=== PATIENT | male | born 1965 | race Caucasian/White ===

== ENCOUNTER 2021-03-09 19:59 | Emergency (ER) | payer MEDICARE, OTHER ==
[~2021-03-09] VITALS: Ht 180.3 cm; Wt 73.5 kg
--- NOTE | 2021-03-09 20:05 | NUR ---
PT BIB [facility] FROM HOME C/O WILLETT/MIGRAINE. PER REPORT PT WAS IN A VERBAL ARGUMENT WITH HIS NEIGHBORS REGARDING NOISE COMPLAINS WHICH IS AN ONGOING SITUATION. PT STATED HE TOOK 2 MG ATIVAN 45 MINUTES STUCCO MASON, HX OF ANXIETY. PT A/O X4, NO SOB OR LABORED BREATHING. NOTED TO BE CALM AND COOPERATIVE AT THE MOMENT. CLEAR SPEECH, COMPLETE SENTENCES. DENIES ANY CP/PRESSURE. AMBULATORY, STEADY GAIT.
--- NOTE | 2021-03-09 20:10 | NUR ---
DR. TOMPKINS AT BEDSIDE, MSE IN PROGRESS.
[2021-03-09] MEDS ORDERED: PROCHLORPERAZINE EDISYLATE 10 MG/2 ML VIAL IV ONE (20:30)
[2021-03-09] MEDS ORDERED: diphenhydrAMINE 50 MG/1 ML VIAL IV ONE (20:30)
[2021-03-09] MEDS ORDERED: IV NORMAL SALINE 500 ML BAG IV ONE (20:30)
[2021-03-09] MEDS ORDERED: diphenhydrAMINE 50 MG/1 ML VIAL ONE (20:40)
[2021-03-09] MEDS ORDERED: PROCHLORPERAZINE EDISYLATE 10 MG/2 ML VIAL ONE (20:40)
[2021-03-09 20:58] LABS: HEMATOCRIT 38.2 % (36.7-47.1); MEAN CORPUSCULAR HEMOGLOBIN 32.7 uug (23.8-33.4); MEAN CORPUSCULAR VOLUME 95.3 fL (73.0-96.2); PLATELET COUNT (AUTO) 127 K/uL (152-348)
[2021-03-09 20:59] LABS: CREATININE 1.6 mg/dL (0.6-1.3); POTASSIUM 4.5 mmol/L (3.5-5.1)
--- NOTE | 2021-03-09 22:08 | NUR ---
Patient discharged to home in stable condition. A/O X4, denies any pain/discomfort upon discharge. Written and verbal after care instructions given. Patient verbalizes understanding of instructions. Stressed follow up or return to ER for worsening s/s. Steady gait. Picked up by .
[2021-03-09 22:09] VITALS: BP 139/89
== END 2021-03-09 22:09 | disposition home or self-care (01) ==
LOC: ER 20:00
DX: G43.909 Migraine, unspecified, not intractable, without status migrainosus (principal); Z86.73 Personal history of transient ischemic attack (TIA), and cerebral infarction without residual deficits; Z94.0 Kidney transplant status; H54.7 Unspecified visual loss; Z87.891 Personal history of nicotine dependence; E11.65 Type 2 diabetes mellitus with hyperglycemia; Z95.5 Presence of coronary angioplasty implant and graft
CPT/HCPCS: 36415; 80048; 85025; 96361; 96374; 96375; 99284; J0780; J1200; A4663; J7030

== ENCOUNTER 2021-05-06 20:21 | Inpatient (IN) | payer MEDICARE, OTHER ==
[~2021-05-06] VITALS: Ht 180.3 cm; Wt 73.5 kg
[2021-05-06] MEDS ORDERED: IV NORMAL SALINE 1000 ML BAG IV ONE (21:00)
[2021-05-06] MEDS ORDERED: ONDANSETRON 4 MG/2 ML VIAL IV ONE (21:00)
[2021-05-06] MEDS ORDERED: HYDROMORPHONE 1 MG/1 ML DISP.SYRIN IV ONE (21:00)
[2021-05-06] MEDS ORDERED: MORPHINE SULFATE 4 MG/1 ML DISP.SYRIN IV ONE (21:30)
[2021-05-06 21:38] LABS: HEMATOCRIT 42.7 % (36.7-47.1); MEAN CORPUSCULAR HEMOGLOBIN 32.8 uug (23.8-33.4); MEAN CORPUSCULAR VOLUME 95.3 fL (73.0-96.2); PLATELET COUNT (AUTO) 172 K/uL (152-348)
[2021-05-06] MEDS ORDERED: ONDANSETRON 4 MG/2 ML VIAL ONE (21:43)
[2021-05-06] MEDS ORDERED: MORPHINE SULFATE 4 MG/1 ML DISP.SYRIN ONE (21:43)
[2021-05-06 21:45] LABS: CREATININE 1.8 mg/dL (0.6-1.3); POTASSIUM 4.7 mmol/L (3.5-5.1)
[2021-05-06 22:00] LABS: BILIRUBIN,DIRECT 0.2 mg/dL (0.0-0.2); BILIRUBIN,TOTAL 0.9 mg/dL (0.2-1.0); TOTAL PROTEIN, SERUM 8.1 g/dL (6.4-8.2)
[2021-05-07] MEDS ORDERED: IV NS 1000 ML 1,000 ML IV ONE
[2021-05-07] MEDS ORDERED: MORPHINE SULFATE 4 MG/1 ML DISP.SYRIN IV ONE
[2021-05-07] MEDS ORDERED: MORPHINE SULFATE 4 MG/1 ML DISP.SYRIN ONE (00:22)
[2021-05-07] MEDS ORDERED: PROCHLORPERAZINE EDISYLATE 10 MG/2 ML VIAL ONE (00:27)
[2021-05-07] MEDS ORDERED: PROCHLORPERAZINE EDISYLATE 10 MG/2 ML VIAL IV ONE (00:30)
[2021-05-07] MEDS ORDERED: MAGNESIUM HYDROXIDE 30 ML LIQUID UDC PO PRN (01:00)
[2021-05-07] MEDS ORDERED: ONDANSETRON 4 MG/2 ML VIAL IV PRN (01:00)
[2021-05-07] MEDS ORDERED: Z GUARD REMEDY PASTE 57 GM TUBE TOP PRN (01:00)
[2021-05-07] MEDS ORDERED: ACETAMINOPHEN 325 MG TABLET PO PRN (01:00)
[2021-05-07] MEDS: IV NS 1000 ML 1,000 ML IV SCH ×3 (01:00→05:16)
[2021-05-07 01:30] LABS: *BILIRUBIN,URIN NEGATIVE (NEGATIVE); *BLOOD, URINE 1+ (NEGATIVE); *CLARITY,URINE CLEAR (CLEAR); *COLOR,URINE YELLOW (YELLOW); *KETONES,URINE NEGATIVE (NEGATIVE); *UROBILINOGEN,URINE 0.2 E.U./dl (NORMAL); LEUKOCYTE ESTERASE ,URINE NEGATIVE (NEGATIVE); NITRITE, URINE NEGATIVE (NEGATIVE); PH,URINE 5.5 (5.0-8.0); UGLUCOSE NEGATIVE (NEGATIVE)
[2021-05-07] MEDS ORDERED: CHOL500050 PO (01:34)
[2021-05-07] MEDS ORDERED: PHOS250T5 PO (01:34)
[2021-05-07] MEDS ORDERED: TACR0.5C PO (01:34)
[2021-05-07] MEDS ORDERED: MULT-594 PO (01:34)
[2021-05-07] MEDS ORDERED: EVER0.5T3 PO (01:34)
[2021-05-07] MEDS ORDERED: LORA-259 PO (01:34)
[2021-05-07] MEDS ORDERED: TRAZ-257 PO (01:34)
[2021-05-07] MEDS ORDERED: CARV25TA PO (01:34)
[2021-05-07] MEDS ORDERED: GABA-532 PO (01:34)
[2021-05-07] MEDS ORDERED: LANS30CA54 PO (01:34)
[2021-05-07] MEDS ORDERED: TAMS-3 PO (01:34)
[2021-05-07] MEDS ORDERED: PRED-170 PO (01:34)
[2021-05-07] MEDS ORDERED: AMLO10TA59 PO (01:34)
[2021-05-07] MEDS ORDERED: ENAL-80 PO (01:34)
[2021-05-07] MEDS ORDERED: ESCI-9 PO (01:34)
[2021-05-07 01:39] LABS: BACTERIA,URINE NONE SEEN /HPF (NONE SEEN); RBC,URINE 0-3 /HPF (0-3); SQUAMOUS EPITHELIAL CELL,UR FEW /HPF (NONE SEEN); WBC,URINE NONE SEEN /HPF (0-3)
--- NOTE | 2021-05-07 01:52 | NUR ---
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
[2021-05-07 04:00] VITALS: BP 164/94
--- NOTE | 2021-05-07 05:20 | NUR ---
Admitted to Med/Surg in stable condition. Pt c/o nausea and diarrhea X 4 days. Zofran given and tolerated well. IV site intact. Pt is requesting for his medications to be reconciled as soon as possible because he needs to take his organ transplant medications and also wants to take his Trazodone to help him sleep. Dr. Naranjo paged. BP is 164/94, denies headache or dizziness, no PRNs at this time. Will wait for Dr. Naranjo to call back with any further orders or recommendations.
[2021-05-07] MEDS ORDERED: TACROLIMUS ANHYDROUS 0.5 MG CAPSULE PO SCH (06:00)
[2021-05-07] MEDS ORDERED: CARVEDILOL 25 MG TABLET PO SCH (06:00)
[2021-05-07] MEDS ORDERED: AMLODIPINE 10 MG TABLET PO SCH (06:00)
[2021-05-07] MEDS ORDERED: LORAZEPAM 1 MG TABLET PO PRN (06:00)
[2021-05-07] MEDS ORDERED: PANTOPRAZOLE SODIUM 40 MG TABLET.DR PO SCH (07:05)
[2021-05-07 07:31] LABS: HEMATOCRIT 36.3 % (36.7-47.1); MEAN CORPUSCULAR HEMOGLOBIN 32.9 uug (23.8-33.4); MEAN CORPUSCULAR VOLUME 93.8 fL (73.0-96.2); PLATELET COUNT (AUTO) 128 K/uL (152-348)
[2021-05-07 07:39] LABS: CREATININE 1.5 mg/dL (0.6-1.3); PHOSPHOROUS 2.9 mg/dL (2.5-4.9); POTASSIUM 4.8 mmol/L (3.5-5.1)
[2021-05-07 08:39] VITALS: BP 122/75
[2021-05-07] MEDS: GABAPENTIN 300 MG CAPSULE PO SCH ×2 (08:39→08:45)
[2021-05-07] MEDS ORDERED: MULTIVITAMINS,THERAPEUTIC TABLET PO SCH (09:00)
[2021-05-07] MEDS ORDERED: CHOLECALCIFEROL 1,000 UNIT TABLET PO SCH (09:00)
[2021-05-07] MEDS ORDERED: CHOLECALCIFEROL U PO SCH (09:00)
[2021-05-07] MEDS ORDERED: [UNRECOGNIZED DRUG - OTHER] PO SCH (09:00)
[2021-05-07] MEDS ORDERED: predniSONE 5 MG TABLET PO SCH (09:00)
[2021-05-07] MEDS ORDERED: NEUTRA PHOS PACKET PO SCH (09:00)
[2021-05-07] MEDS ORDERED: Medication Not On Formulary EA (Multivitamins (Multivitamin) 1 TAB) PO SCH (09:00)
[2021-05-07] MEDS ORDERED: GABAPENTIN 100 MG CAPSULE PO SCH (09:00)
[2021-05-07] MEDS ORDERED: ENALAPRIL 10 MG TABLET PO SCH (09:00)
[2021-05-07] MEDS ORDERED: ESCITALOPRAM OXALATE 10 MG TABLET PO SCH (09:00)
--- NOTE | 2021-05-07 10:06 | NUR ---
PT VERBALIZING THAT HE WANTS TO LEAVE AGAINST MEDICAL ADVICE. RODRICK SAUL SIGNED. STATED HE HAS ALREADY CALLED HIS AND HIS IS WAITING FOR HIM IN THE LOBBY TO PICK HIM UP. PT IS HIGHLY IRRITABLE AND EASILY AGITATED. STATES HE IS DISSATISFIED WITH STAFF, SERVICE, DOCTORS, HOSPITAL, ETC. PT RIPPED OUT IV FROM LEFT AC, THREW IT ON THE FLOOR, AND STATED "I NEED THIS THING OFF ME. DON'T WORRY, BLAIR PULLED OUT CATHETERS AND OTHER THINGS BEFORE." PT IS AOX4. ABLE TO VERBALIZE ALL NEEDS. DENIES PAIN OR N/V AT THIS TIME. TAKEN VIA W/C ACCOMPANIED BY HOUSE PRINCIPAL TO LOBBY WHERE HIS IS WAITING FOR HIM.
[2021-05-07] MEDS ORDERED: TAMSULOSIN HCL 0.4 MG CAP.SR.24H PO SCH (21:00)
[2021-05-07] MEDS ORDERED: TRAZODONE 100 MG TABLET PO SCH (21:00)
[2021-05-07] MEDS ORDERED: EVEROLIMUS 1 MG PO SCH (21:00)
== END 2021-05-07 10:00 | disposition left against medical advice (07) | DRG 641 ==
LOC: ER 20:22 → MEDSURG3 05-07 03:07
PROVIDERS: ADMIT Family Medicine; ATTEND Family Medicine
DX: E86.0 Dehydration (principal); Z94.0 Kidney transplant status; H54.8 Legal blindness, as defined in USA; Z86.73 Personal history of transient ischemic attack (TIA), and cerebral infarction without residual deficits; F41.9 Anxiety disorder, unspecified; F32.9 Major depressive disorder, single episode, unspecified; Z20.822 Contact with and (suspected) exposure to COVID-19; K52.9 Noninfective gastroenteritis and colitis, unspecified; R94.4 Abnormal results of kidney function studies; Z79.4 Long term (current) use of insulin; E11.9 Type 2 diabetes mellitus without complications
CPT/HCPCS: 36415; 71045; 83605; 83690; 83735; 84100; 85025; 87040; 87086; 93005; A4663; G0378; J0780; J2270; J2405; J7030; J7512